=== PATIENT | male | born 1950 | race African-American/Black ===

== ENCOUNTER 2021-05-13 12:45 | Emergency (ER) | payer MEDICARE, OTHER, SELFPAY ==
--- NOTE | ~2021-05-13 | XR_ITS ---
EXAMINATION: XR chest 2V DATE: 05/13/2021 13:59 INDICATION: Fever. TECHNIQUE: Frontal and lateral views of the chest were obtained. COMPARISON: Chest 2 views 03/02/2006 FINDINGS: The chest demonstrates clear lungs without pneumonia, pleural effusion, or pneumothorax. Th e heart size is normal. IMPRESSION: 1. No acute cardiopulmonary disease. Reviewed, dictated and finalized at location [facility]. [facility]
[2021-05-13 13:00] VITALS: BP 173/88; PULSE 90; RESP 16; TEMP 38.3; O2SAT 90
[2021-05-13 13:19] VITALS: TEMP 38.3
[2021-05-13] MEDS: ACETAMINOPHEN 500 MG TABLET 1000 MG PO (13:19)
--- NOTE | 2021-05-13 13:42 | ED.URI ---
HPI - URI/Sore Throat General Chief Complaint: Upper Respiratory Infection Stated Complaint: Sinus Pressure Time Seen by Provider: 05/13/21 13:42 Source: patient, RN notes reviewed and old records reviewed Mode of arrival: ambulatory Limitations: no limitations History of Present Illness HPI Narrative: 70-year-old male presents to the [facility] with complaints of head pressure, chills and drainage since yesterday. Has tried Mucinex. States he is Covid vaccinated but not flu vaccinated. MD elicited complaint: fever Related Data Home Medications Medication Instructions Recorded Confirmed amlodipine 05/13/21 calcitriol 05/13/21 diazepam 05/13/21 ergocalciferol (vitamin D2) 05/13/21 fluticasone propionate INTRANASAL 05/13/21 hydralazine 05/13/21 indapamide mg 05/13/21 losartan 05/13/21 metoprolol succinate PO 05/13/21 montelukast mg 05/13/21 omeprazole 05/13/21 simvastatin mg 05/13/21 Allergies Allergy/AdvReac Type Severity Reaction Status Date / Time No Known Drug Allergies Allergy Verified 04/23/12 10:44 Review of Systems Review of Systems: All systems reviewed & are unremarkable except as noted in HPI and below Constitutional: Constitutional: Reports as per HPI, Denies chills and Reports fever(s) Eyes: Eyes: Reports no additional eye complaints ENT: Reports as per HPI and Reports nasal congestion Cardiovascular: Cardiovascular: Reports no additional cardiovascular complaints, Denies chest pain and Denies radiating jaw, neck or arm pain Respiratory: Respiratory: Reports as per HPI, Denies cough, Denies dyspnea and Denies wheezing Gastrointestinal: Gastrointestinal: Reports no additional gastrointestinal complaints, Denies abdominal pain, Denies nausea and Denies vomiting Musculoskeletal: Musculoskeletal: Reports no additional musculoskeletal complaints Integumentary/Breasts: Skin/Breast: Reports system reviewed and no additional complaints, except as docu Neurologic: Reports system reviewed and no additional complaints, except as documented Psychiatric: Psychiatric: Reports no additional psychiatric complaints Allergic/Immunologic: Allergic/Immunologic: Reports no additional allergic/immunologic complaints [facility] Past Medical History Medical History (Updated 05/13/21 @ 19:18 by Gissel Sherwood) High cholesterol History of high blood pressure Seasonal allergies Surgical History Surgical History (Updated 05/13/21 @ 19:18 by Gissel A. Topper) No pertinent past surgical history Comments At the time of my signature, I reviewed and agree with the nursing past medical, surgical, social, and family history. There is no relevant family history pertinent to the patient complaint. Exam Const: General: healthy appearing, no acute distress and alert Nutritional Appearance: well nourished Orientation/consciousness: patient oriented x3 Limitations: no limitations HENMT: Head: normal to inspection Ears: external ears normal, TM's normal bilaterally and EAC's normal Mouth: Yes moist mucous membranes Throat: posterior oropharynx normal Eyes: Conjunctivae: conjunctivae normal Pupils: Equal, round and reactive pupils present Neck: Neck: normal visual inspection, no lymphadenopathy and no meningeal signs Chest: Chest palpation & inspection: normal inspection of the chest Resp: Effort & Inspection: normal respiratory effort and no use of accessory muscles Auscultation: no crackles, no rales, no rhonchi, no wheezes and diminished lung sounds on the right in the lower lung guidry Cardio: Rate: regular rate Rhythm: regular rhythm GI: GI Palp: Yes Soft to palpation and No Tenderness to palpation present (GI) Back/Spine/Pelvis: Back: no CVA tenderness Skin: General skin exam: normal color Rashes: no rashes Wounds: no wounds Neuro: General: patient oriented x3, moves all extremities, no meningeal signs and no focal motor deficits Speech: normal speech Gait exam (Neuro): Normal ga
[2021-05-13 13:49] VITALS: TEMP 37.8
[2021-05-13 14:13] VITALS: PULSE 78; RESP 20; TEMP 37.8; O2SAT 99
== END 2021-05-13 14:45 | disposition home or self-care (01) ==
PROVIDERS: Emergency Provider Nurse Practitioner; PCP Internal Medicine
DX: B34.9 Viral infection, unspecified (principal); Z20.822 Contact with and (suspected) exposure to COVID-19
CPT/HCPCS: 71046; 87804; 99213; A9270; G0463

== ENCOUNTER → 2021-05-17 02:13 | Outpatient (CLI) | payer MEDICARE, OTHER, SELFPAY ==
[2021-05-18 14:39] LABS: SARS-CoV-2 RNA PCR Positive
== END ==
PROVIDERS: PCP Internal Medicine; Visit Provider Nurse Practitioner
DX: U07.1 COVID-19 (principal)
CPT/HCPCS: C9803; U0003; U0005